=== PATIENT | female | born 1995 | race Caucasian/White ===

== ENCOUNTER 2016-09-26 09:22 | Emergency (ER) | payer BC ==
[~2016-09-26] VITALS: Ht 172.7 cm; Wt 46.8 kg
[2016-09-26 09:27] VITALS: BP 102/56; TEMP 98
[2016-09-26 11:44] VITALS: PULSE 76
== END 2016-09-26 11:44 | disposition home or self-care (01) ==
LOC: COL.ER 09:22
DX: N83.201 Unspecified ovarian cyst, right side (principal); R10.31 Right lower quadrant pain

== ENCOUNTER → 2019-10-20 | Outpatient (CLI) | payer BC | LOC: COL.LAB 12:00 | DX: R06.02 Shortness of breath (principal); Z20.828 Contact with and (suspected) exposure to other viral communicable diseases ==